=== PATIENT | female | born 1950 | race Caucasian/White ===

== ENCOUNTER 2016-06-14 09:13 | Day surgery (SDC) | payer MEDICARE ==
[2016-06-14] VITALS (8 sets, daily range): BP systolic 128–190; BP diastolic 63–93; PULSE 60–74; RESP 16–18; TEMP 97.9–98.6; O2SAT 97–98
[~2016-06-14] VITALS: Ht 167.6 cm; Wt 75.3 kg
[~2016-06-14 09:13] MED LIST: AMLO2.5T OR; ASPI81TA82 PO; CARV25TA OR; CEPH500 PO; HYDR-2768 PO; LISI40TA PO; MAGN500T4 PO; MULT1TAB; OMEG100010; RED600TA PO; ZOFR4TAB3 PO
[2016-06-14] MEDS ORDERED: CARV25TA PO (10:01)
[2016-06-14] MEDS ORDERED: HYDR25TA5 PO (10:01)
[2016-06-14] MEDS ORDERED: ESSE250T PO (10:01)
[2016-06-14] MEDS ORDERED: OMEGCAP PO (10:01)
[2016-06-14] MEDS ORDERED: LISI40TA PO (10:01)
[2016-06-14] MEDS ORDERED: ASPI1TAB69 PO (10:01)
[2016-06-14 10:05] LABS: AUTOMATED NEUTROPHIL # 5.1 TH/MM3 (1.8-7.7); BASOPHIL # 0.1 TH/MM3 (0-0.2); BASOPHIL % 0.9 % (0.0-2.0); EOSINOPHIL # 0.1 TH/MM3 (0-0.4); EOSINOPHIL % 0.8 % (0.0-4.0); HEMATOCRIT 37.4 % (35.0-46.0); HEMO FLAGS DIFF FINAL; LYMPH % 24.7 % (9.0-44.0); MEAN CELL VOLUME 90.3 FL (80.0-100.0); MEAN CORPUSCULAR HEMOGLOBIN 31.7 PG (27.0-34.0); MEAN CORPUSCULAR HGB CONC 35.1 % (32.0-36.0); MONO % 9.9 % (0.0-8.0); NEUT % 63.7 % (16.0-70.0); PLATELET COUNT 331 TH/MM3 (150-450); RED BLOOD COUNT 4.14 MIL/MM3 (4.00-5.30); RED CELL DISTRIBUTION WIDTH 13.4 % (11.6-17.2)
[2016-06-14 10:17] LABS: APTT (PATIENT) 27.2 SEC (24.3-30.1); PROTHROMBIN TIME - PATIENT 10.9 SEC (9.8-11.6)
[2016-06-14 10:26] LABS: BICARBONATE 29.1 MEQ/L (21.0-32.0)
[2016-06-14 10:28] LABS: POTASSIUM 4.6 MEQ/L (3.5-5.1)
[2016-06-14] MEDS ORDERED: HEPARIN-NS/PF INJ 500 ML ONE (15:00)
[2016-06-14] MEDS ORDERED: MIDAZOLAM HCL 2 MG/2 ML VIAL ONE (15:01)
[2016-06-14] MEDS ORDERED: HEPARIN SODIUM - IV 10,000 UNITS/10 ML VIAL ONE (16:35)
[2016-06-14] MEDS ORDERED: IOHEXOL 350 MG/ML 100 ML BTL (for Cath Lab) OTHER ONE (17:00)
[2016-06-14] MEDS ORDERED: SODIUM CHLOR 0.9% 1000 ML INJ 1,000 ML IV SCH (17:57)
[2016-06-14] MEDS ORDERED: oxyCODONE/ACETAMINOPHEN 5 MG/325 MG TAB PO PRN (18:00)
[2016-06-14] MEDS ORDERED: hydrALAZINE HCL 20 MG/ML VIAL IV PUSH PRN (18:00)
[2016-06-14] MEDS ORDERED: SODIUM CHLOR 0.9% 250 ML INJ 250 ML IV PRN (18:00)
[2016-06-14] MEDS ORDERED: SODIUM CHLORIDE 0.9% FLUSH 10 ML FLUSH IV FLUSH PRN (18:00)
[2016-06-14] MEDS ORDERED: MISC INFORMATION XX ONE (18:00)
[2016-06-14] MEDS ORDERED: ONDANSETRON HCL 4 MG/2 ML VIAL IV PRN (18:00)
[2016-06-14] MEDS ORDERED: ATROPINE SULFATE 1 MG/ML VIAL IV PRN (18:00)
[2016-06-14] MEDS ORDERED: MAGNESIUM PO SCH (21:00)
[2016-06-14] MEDS: SODIUM CHLORIDE 0.9% FLUSH 10 ML FLUSH IV FLUSH SCH (21:00)
[2016-06-14] MEDS ORDERED: BACITRACIN OINT 0.9 GM PKT ONE (21:20)
[2016-06-14] MEDS: CARVEDILOL 12.5 MG TAB PO SCH (21:26)
[2016-06-14] MEDS ORDERED: ATROPINE SULFATE 1 MG/10 ML SYRINGE ONE (22:00)
[2016-06-14] MEDS: oxyCODONE/ACETAMINOPHEN 5 MG/325 MG TAB PO PRN (22:35)
[2016-06-15] VITALS (16 sets, daily range): BP systolic 74–123; BP diastolic 48–73; PULSE 56–78; RESP 16–18; TEMP 98.1–98.6; O2SAT 91–97
--- NOTE | 2016-06-15 00:05 | MA ---
cc: RAMIN MENDEZ DO DATE: 06/14/2016 PROCEDURE Bilateral peripheral angiogram. Ultrasound guided access. SEDATION 90 minutes. PREPROCEDURE DIAGNOSIS Lifestyle limiting claudication of the right leg with mild disease of the left lower extremity. POSTPROCEDURE DIAGNOSIS Multilevel PAD of the right common iliac, right external iliac, right SFA, left SFA. MEDICATIONS Versed 1 milligram, fentanyl 100 micrograms, heparin 6700 units. FLUOROSCOPY TIME 23.7 minutes. CONTRAST 120 cc. ESTIMATED BLOOD LOSS: 20 cc. PREPROCEDURE SUMMARY Mckenna Gill is a pleasant 65 year-old female who underwent CT angiography with runoff of her lower extremity showing multilevel peripheral artery disease. Because of this, she was recommended peripheral angiogram. Because her right lower extremity is what seems to be causing her left femoral artery with access using a modified Seldinger technique and a micropuncture needle with ultrasound guidance. Left extremity runoff shows a high bifurcation on the left side with mild disease of the left SFA throughout the proximal portion. The mid portion of the SFA is 100% occluded with calcium noted. This reconstitutes at Alhaji's canal. Popliteal artery seems to be normal in nature with three vessel runoff. 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 There appears to be significant disease within the right common iliac and external iliac. The pigtail was then exchanged for an IM catheter and this was pulled back to the bifurcation for selective angiography of the right common iliac and external iliac. A glide wire was then advanced to the mid SFA. IM catheter was then exchanged for a Quickcross. This was used for selective angiography at multiple levels down the right femoral artery. The right [employer] appears normal in nature. The right SFA has mild calcification in the proximal portion. As the right SFA enters the Alhaji's canal, there appears the SFA has 99% occlusion which is short in nature. The right popliteal artery appears relatively normal with mild disease. It gives off three vessels distally with at least two vessel runoff to the foot. At this time it is felt that a better shot of the distal lower extremity needed to be done and consideration of intervention on the right SFA. A stiff glide wire was then placed into the mid SFA and the Quickcross was removed. The 5 Barbadian sheath was then exchanged for a 6-Barbadian destination sheath. The patient was given heparin. A glide wire and Quickcross were then advanced into the SFA and across the lesion. Selective angiography shows three-vessel runoff distally. Pressures in the sheath were relatively low and there was a concern for the significance of iliac disease. It was felt this should be intervened first before the SFA. EBU was then removed. The destination sheath was pulled back to show significant gradient at both the external iliac and common iliac. Because of her current access point as well as the amount of dye used, it was felt that it would be better to come back and consider intervention of the right external iliac and common iliac from the right common femoral approach. The destination sheath was then exchanged for a 6-Barbadian short sheath. The patient left the catheterization lab cardiovascularly stable. IMPRESSION 1. Lifestyle-limiting claudication more specifically on the right. 2. Multilevel peripheral artery disease with significant disease of the right common iliac, right external iliac, right SFA. 3. Left SFA has a longer occlusion. The patient states she has mild symptoms. RECOMMENDATIONS: 1. Will plan on repeat angiogram from a right common femoral artery standpoint with a plan for intervention on her right external iliac and right common iliac in around one weeks time. 2. If she continues to have significant pain after this in the right leg, then consideration will be made for intervention on her right SFA. 3. At this time it is difficult to ascertain her symptoms on the left lower extremity as she does have more significant pain on the right. If after intervention, she starts to have pain on the left lower extremity, consideration will be made for intervention on her left lower extremity. 4. She will be watched overnight and a plan for discharge in the morning. Thank you for allowing me to see Mckenna Hadley. If there are any questions, please do not hesitate to call. Ramin Mendez DO VGP/LYLY /11:20 PM /11:47 PM
[2016-06-15] MEDS: oxyCODONE/ACETAMINOPHEN 5 MG/325 MG TAB PO PRN (04:05)
[2016-06-15 06:48] LABS: AUTOMATED NEUTROPHIL # 7.6 TH/MM3 (1.8-7.7); BASOPHIL # 0.1 TH/MM3 (0-0.2); BASOPHIL % 0.7 % (0.0-2.0); EOSINOPHIL % 0.4 % (0.0-4.0); HEMATOCRIT 37.5 % (35.0-46.0); HEMO FLAGS DIFF FINAL; LYMPH % 14.5 % (9.0-44.0); LYMPHOCYTE # 1.4 TH/MM3 (1.0-4.8); MEAN CELL VOLUME 91.9 FL (80.0-100.0); MEAN CORPUSCULAR HEMOGLOBIN 30.7 PG (27.0-34.0); MEAN CORPUSCULAR HGB CONC 33.4 % (32.0-36.0); MONO % 7.6 % (0.0-8.0); NEUT % 76.8 % (16.0-70.0); PLATELET COUNT 311 TH/MM3 (150-450); RED BLOOD COUNT 4.08 MIL/MM3 (4.00-5.30); RED CELL DISTRIBUTION WIDTH 13.7 % (11.6-17.2); WHITE BLOOD COUNT 9.9 TH/MM3 (4.0-11.0)
[2016-06-15 07:09] LABS: BICARBONATE 25.9 MEQ/L (21.0-32.0); POTASSIUM 4.4 MEQ/L (3.5-5.1)
[2016-06-15] MEDS: CARVEDILOL 12.5 MG TAB PO SCH (08:17)
[2016-06-15] MEDS: SODIUM CHLORIDE 0.9% FLUSH 10 ML FLUSH IV FLUSH SCH (08:17)
[2016-06-15] MEDS ORDERED: HYDROCHLOROTHIAZIDE 25 MG TAB PO SCH (09:00)
[2016-06-15] MEDS ORDERED: ASPIRIN EC 81 MG TABEC PO SCH (09:00)
[2016-06-15] MEDS ORDERED: NON-FORMULARY DRUG (Fish Oil-Cholecalciferol (Omega-3 Fish Oil/Vitamin) 1 CAP) PO SCH (09:00)
--- NOTE | 2016-06-15 10:03 | PD.CARD.PN ---
Subjective Subjective Remarks Episode this morning, up and ambulating and had a drop in her pressure, somewhat lightheaded, no chest pain or SOB Otherwise no problems, no pain in the legs Objective Medications Current Medications Medications (Trade) Dose Ordered Sig/Mia Route Start Time Stop Time Status Last Admin (Ecotrin Ec) 81 mg DAILY PO 06/15/16 09:00 06/15/16 08:17 (Coreg) 25 mg BID PO 06/14/16 21:00 06/14/16 21:26 (Hydrodiuril) 25 mg DAILY PO 06/15/16 09:00 (NS Flush) 2 ml BID IV FLUSH 06/14/16 21:00 06/15/16 08:17 (NS Flush) 2 ml UNSCH PRN IV FLUSH 06/14/16 18:00 (Percocet 5-325 Mg) 1 tab Q4H PRN PO 06/14/16 18:00 (Percocet 5-325 Mg) 2 tab Q4H PRN PO 06/14/16 18:00 06/15/16 04:05 Atropine Sulfate 0.5 mg 0.5 mg UNSCH PRN IV 06/14/16 18:00 (NS 250 ml Inj) 250 ml @ 500 mls/hr ONCE PRN IV 06/14/16 18:00 06/15/16 17:59 (Zofran Inj) 4 mg Q4H PRN IV 06/14/16 18:00 (Apresoline Inj) 10 mg Q4H PRN IV PUSH 06/14/16 18:00 Vital Signs / I&O Vital Signs Date Time Temp Pulse Resp B/P Pulse Ox O2 Delivery O2 Flow Rate FiO2 06/15/16 07:45 98.6 66 16 115/48 97 06/15/16 07:01 62 06/15/16 06:00 59 06/15/16 05:10 56 06/15/16 05:05 123/73 06/15/16 05:00 74/51 06/15/16 04:00 62 06/15/16 04:00 98.3 62 16 108/64 94 06/15/16 03:00 62 06/15/16 02:10 66 06/15/16 01:00 64 06/15/16 00:00 64 06/14/16 23:13 64 06/14/16 23:00 63 06/14/16 23:00 97.9 64 18 131/73 98 Arterial Line 06/14/16 22:00 74 06/14/16 21:00 66 06/14/16 20:00 64 06/14/16 20:00 98.3 60 16 128/76 97 152/63 06/14/16 19:00 66 06/14/16 17:45 98.6 68 16 149/71 97 06/14/16 10:13 69 18 190/93 98 I/O 06/14/16 06/14/16 06/14/16 06/15/16 06/15/16 06/15/16 07:00 15:00 23:00 07:00 15:00 23:00 Intake Total 240 ml 800 ml Output Total 500 ml Balance 240 ml 300 ml Intake Oral 240 ml 600 ml IV Total 200 ml Output Urine Total 500 ml # Voids 0 # Bowel Movements 0 0 Physical Exam GENERAL: NAD, AAOx3 SKIN: Warm and dry. HEAD: Atraumatic. Normocephalic. EYES: Pupils equal and round. No scleral icterus. No injection or drainage. ENT: No nasal bleeding or discharge. Mucous membranes pink and moist. NECK: Trachea midline. No JVD. CARDIOVASCULAR: Regular rate and rhythm. RESPIRATORY: No accessory muscle use. Clear to auscultation. Breath sounds equal bilaterally. GASTROINTESTINAL: Abdomen soft, non-tender, nondistended. Hepatic and splenic margins not palpable. MUSCULOSKELETAL: Extremities without clubbing, cyanosis, or edema. No obvious deformities. Left femoral no hematoma/bruit/ecchymosis NEUROLOGICAL: Awake and alert. No obvious cranial nerve deficits. Motor grossly within normal limits. Five out of 5 muscle strength in the arms and legs. Normal speech. PSYCHIATRIC: Appropriate mood and affect; insight and judgment normal. Laboratory Laboratory Tests Test 06/15/16 05:05 White Blood Count 9.9 TH/MM3 Red Blood Count 4.08 MIL/MM3 Hemoglobin 12.5 GM/DL Hematocrit 37.5 % Mean Corpuscular Volume 91.9 FL Mean Corpuscular Hemoglobin 30.7 PG Mean Corpuscular Hemoglobin 33.4 % Concent Red Cell Distribution Width 13.7 % Platelet Count 311 TH/MM3 Mean Platelet Volume 7.4 FL Neutrophils (%) (Auto) 76.8 % Lymphocytes (%) (Auto) 14.5 % Monocytes (%) (Auto) 7.6 % Eosinophils (%) (Auto) 0.4 % Basophils (%) (Auto) 0.7 % Neutrophils # (Auto) 7.6 TH/MM3 Lymphocytes # (Auto) 1.4 TH/MM3 Monocytes # (Auto) 0.8 TH/MM3 Eosinophils # (Auto) 0.0 TH/MM3 Basophils # (Auto) 0.1 TH/MM3 CBC Comment DIFF FINAL Differential Comment Sodium Level 138 MEQ/L Potassium Level 4.4 MEQ/L Chloride Level 105 MEQ/L Carbon Dioxide Level 25.9 MEQ/L Anion Gap 7 MEQ/L Blood Urea Nitrogen 24 MG/DL Creatinine 1.22 MG/DL Estimat Glomerular Filtration 44 ML/MIN Rate Random Glucose 118 MG/DL Calcium Level 9.3 MG/DL Assessment and Plan Problem List: (1) PAD (peripheral artery disease) (2) Claudication Assessment and Plan 1) Post peripheral angiogram, has significant inflow and outflow disease of the right lower extremity (right common iliac, right external iliac, right SFA) and GLASS ENGRAVER of the left SFA 2) Symptoms more on the right, questionable symptoms on the left 3) Will plan on repeat angiogram with intervention most likely on right common iliac and right external iliac from right groin, then will see about symptoms before doing right or left SFA 4) Drop in pressure this morning with lightheadedness, hemoglobin relatively stable, but will check CT scan for possible retroperitoneal bleed 5) If no bleed, plan on discharge this morning Ramin Cruz DO Jun 15, 2016 10:03
--- NOTE | 2016-06-15 10:35 | RADRPT ---
EXAM DATE/TIME: 06/15/2016 09:56 [facility] COMPARISON: No previous studies available for comparison. INDICATIONS : Status post cardiac catherization, drop in blood pressure. ORAL CONTRAST: No oral contrast ingested. RADIATION DOSE: 10.05 CTDIvol (mGy) MEDICAL HISTORY : Hypertension. SURGICAL HISTORY : Appendectomy. ENCOUNTER: Initial ACUITY: 1 day PAIN SCALE: 0/10 LOCATION: abdomen TECHNIQUE: Volumetric scanning of the abdomen and pelvis was performed. Using automated exposure control and ad justment of the mA and/or kV according to patient size, radiation dose was kept as low as reasonably achievable to obtain optimal diagnostic quality images. FINDINGS: LOWER LUNGS: The visualized lower lungs are clear. LIVER: Homogeneous density without lesion. There is no dilation of the biliary tree. No calcified gallston es. Vicarious excretion of contrast in the gallbladder. SPLEEN: Normal size without lesion. PANCREAS: No inflammatory changes seen around the pancreas. A 7 mm low-attenuation focus is seen anteriorly wit hin the tail. KIDNEYS: Normal in size and shape. There is no mass, stone, or hydronephrosis. A 1 mm calcification is seen i nvolving the renal hilum on the right felt to be atherosclerotic in nature. ADRENAL GLANDS: Within normal limits. VASCULAR: Diffuse calcified atherosclerotic plaque of the aorta and inflow vessels. No hematoma observed. No pe riaortic fluid collections or aneurysm. Mild stranding adjacent to the common femoral artery on the l eft. BOWEL/MESENTERY: The stomach, small bowel, and colon demonstrate no acute abnormality. There is no free intraperitone al air or fluid. ABDOMINAL WALL: Within normal limits. RETROPERITONEUM: There is no lymphadenopathy. BLADDER: No wall thickening or mass. Contrast from the recent cardiac catheterization is seen filling the blad roro. REPRODUCTIVE: Within normal limits. INGUINAL: There is no lymphadenopathy or hernia. MUSCULOSKELETAL: Within normal limits for patient age. CONCLUSION: 1. No hematoma observed. 2. 7 mm low attenuation focus involving the tail of the pancreas. It's too small to accurately charac terize with CT. At some point a follow up MRI with and without gadolinium of the pancreas is suggeste d to further evaluate. Farhat Wilson Jr., MD on June 15, 2016 at 10:19 Board Certified Radiologist. This report was verified electronically.
--- NOTE | 2016-06-15 11:47 | HHI.DS ---
Discharge Summary Admission Date 06/14/16 Discharge Date: Jun 15, 2016 Admitting Diagnosis Peripheral vascular disease with lifestyle limiting claudication (1) PAD (peripheral artery disease) Diagnosis: Principal (2) Claudication Diagnosis: Principal Procedures Peripheral angiogram with significant inflow and outflow disease of the right lower extremity. AGENT PRODUCER of the left SFA. CBC/BMP: 06/15/16 0505 06/15/16 0505 Significant Findings Laboratory Tests Test 06/14/16 06/15/16 09:45 05:05 Monocytes (%) (Auto) 9.9 % (0.0-8.0) Blood Urea Nitrogen 24 MG/DL (7-18) 24 MG/DL (7-18) Creatinine 1.18 MG/DL 1.22 MG/DL (0.50-1.00) (0.50-1.00) Estimat Glomerular Filtration 46 ML/MIN (>89) 44 ML/MIN (>89) Rate Neutrophils (%) (Auto) 76.8 % (16.0-70.0) Random Glucose 118 MG/DL (74-106) Imaging Last Impressions Abdomen/Pelvis CT 06/15/16 0000 Signed Impressions: Service Date/Time: May 09:56 - CONCLUSION: 1. No hematoma observed. 2. 7 mm low attenuation focus involving the tail of the pancreas. It' s too small to accurately characterize with CT. At some point a follow up MRI with and without gadolinium of the pancreas is suggested to further evaluate. Farhat Wilson Jr., MD Pt Condition on Discharge: Good Discharge Disposition: Discharge Home Discharge Instructions DIET: Follow Instructions for: Heart Healthy Diet Activities you can perform: See Additionl Instruction Additional Activity Instructio: No lifting more than 10 lbs for 3 days Additional Information Please follow up with your primary doctor for consideration of MRI with and with gadolinium for a low attenuation focus in the tail of the pancreas Ramin Cruz DO Jun 15, 2016 11:46
== END 2016-06-15 12:55 | disposition home or self-care (01) ==
LOC: HCAT 09:13 → HDIC 09:15 → HCIN 17:42 → HCAT 06-15 12:55
PROVIDERS: ATTEND Nuclear Medicine Nuclear Cardiology
DX: I70.212 Atherosclerosis of native arteries of extremities with intermittent claudication, left leg (principal); I10 Essential (primary) hypertension; I25.10 Atherosclerotic heart disease of native coronary artery without angina pectoris; I42.9 Cardiomyopathy, unspecified; E78.5 Hyperlipidemia, unspecified; I87.9 Disorder of vein, unspecified; F17.200 Nicotine dependence, unspecified, uncomplicated; Z79.82 Long term (current) use of aspirin; Z79.01 Long term (current) use of anticoagulants
CPT/HCPCS: 36247; 74176; 75625; 75716; 80048; 85002; 85025; 85610; 85730; C1751; C1769; C1893; J1644; J2250; J3010; 85347; J0461; Q9967